=== PATIENT | female | born 1990 | race Caucasian/White ===

== ENCOUNTER 2017-05-03 23:37 | Inpatient (IN) | payer SELFPAY ==
[~2017-05-03] VITALS: Ht 172.7 cm; Wt 66.1 kg
[~2017-05-03 23:37] MED LIST: IBUPROFEN800 MG PO; NATALCARE RX1 TABLE1 PO; ~No Medications
[2017-05-04 00:04] LABS: HEMATOCRIT 36.8 % (36.0-46.0); MCH 31.2 PG (29.0-34.0); MCHC 35.1 G/DL (30.0-36.0); MCV 88.9 FL (83-99); MEAN PLAT.VOLUME 9.5 uM^3 (9.5-12.4); PLATELET COUNT 211 K/uL (156-360); RBC DIS.WIDTH-CV 12.4 % (11.8-14.6); RBC DIS.WIDTH-SD 40.5 % (39-53); RED BLOOD COUNT 4.14 M/uL (3.80-5.20); WHITE BLOOD COUNT 7.8 K/uL (4.1-10.2)
[2017-05-04 00:14] LABS: CHLORIDE 105 mEq/L (99-109); POTASSIUM 3.3 mEq/L (3.7-5.4); SODIUM 138 mEq/L (136-147)
[2017-05-04 00:15] LABS: GLUCOSE 102 mg/dL (70-99)
[2017-05-04 00:17] LABS: ANION GAP 9 MEQ/L (2-14)
[2017-05-04 00:19] LABS: GFR ESTIMATE (CALCULATED) > 59 mL/min/
[2017-05-04 00:20] LABS: UREA NITROGEN (BUN) 10 mg/dL (9-23)
[2017-05-04 00:43] LABS: QUANTITATIVE HCG 48123.9 MIU/ML
[2017-05-04 04:45] VITALS: BP 112/69
[2017-05-04 07:41] VITALS: BP 120/72
[2017-05-04] MEDS ORDERED: TYLENOL EXTRA500 MG PO (10:13)
[2017-05-04 11:20] VITALS: BP 122/72
[2017-05-04 16:14] VITALS: BP 118/76
== END 2017-05-04 18:38 | disposition home or self-care (01) | DRG 781 ==
LOC: EME 23:37 → EDOF 05-04 02:33 → ENRESERV 05-04 02:38 → 2EAST 05-04 04:32
PROVIDERS: Emergency Medicine
DX: O99.411 Diseases of the circulatory system complicating pregnancy, first trimester (principal); I26.09 Other pulmonary embolism with acute cor pulmonale; Z3A.01 Less than 8 weeks gestation of pregnancy; I83.92 Asymptomatic varicose veins of left lower extremity; O99.89 Other specified diseases and conditions complicating pregnancy, childbirth and the puerperium; J84.10 Pulmonary fibrosis, unspecified; I45.9 Conduction disorder, unspecified
CPT/HCPCS: 71275; 80048; 84702; 85027; 85379; 93005; 93971; 99281; 99285; J1650; J7030

== ENCOUNTER 2017-12-13 10:35 | Emergency (ER) | payer SELFPAY ==
[~2017-12-13] VITALS: Ht 167.6 cm; Wt 79.0 kg
[~2017-12-13 10:35] MED LIST changes: +TYLENOL EXTRA500 MG PO
[2017-12-13 11:11] LABS: BASOPHIL (%) 0.5 % (0-1); EOSINOPHIL (%) 1.2 % (0-5); EOSINOPHIL COUNT 0.1 K/uL (0-0.3); HEMATOCRIT 36.5 % (36.0-46.0); HEMOGLOBIN 13.2 G/DL (11.9-15.5); IMMATURE GRANULOCYTE (%) 0.9 % (0.0-0.7); LYMPHOCYTE (%) 22.4 % (15-42); LYMPHOCYTE COUNT 1.9 K/uL (1.0-2.8); MCH 33.8 PG (29.0-34.0); MCHC 36.2 G/DL (30.0-36.0); MCV 93.4 FL (83-99); MONOCYTE (%) 9.8 % (3-12); MONOCYTE COUNT 0.9 K/uL (0-0.8); NEUTROPHIL (%) 65.2 % (45-76); NEUTROPHIL COUNT 5.7 K/uL (1.8-6.4); PLATELET COUNT 187 K/uL (156-360); RBC DIS.WIDTH-CV 13.2 % (11.8-14.6); RBC DIS.WIDTH-SD 44.9 % (39-53); RED BLOOD COUNT 3.91 M/uL (3.80-5.20); WHITE BLOOD COUNT 8.7 K/uL (4.1-10.2)
[2017-12-13 11:20] LABS: PTT 40.1 SEC (25-37)
[2017-12-13 11:31] LABS: TROP-I INTERPRETATION NEGATIVE; TROPONIN-I < 0.01 ng/mL (0.0-0.30)
[2017-12-13 11:36] LABS: CHLORIDE 105 mEq/L (99-109); SODIUM 136 mEq/L (136-147)
[2017-12-13 11:38] LABS: GLUCOSE 110 mg/dL (70-99)
[2017-12-13 11:42] LABS: CREATININE 0.8 mg/dL (0.6-1.3); GFR ESTIMATE (CALCULATED) > 59 mL/min/
[2017-12-13 11:43] LABS: UREA NITROGEN (BUN) 9 mg/dL (9-23)
[2017-12-13 13:18] VITALS: BP 125/84
== END 2017-12-13 13:19 | disposition home or self-care (01) ==
LOC: EME 10:35
PROVIDERS: Emergency Medicine
DX: O99.89 Other specified diseases and conditions complicating pregnancy, childbirth and the puerperium (principal); R07.89 Other chest pain; Z3A.32 32 weeks gestation of pregnancy; Z86.711 Personal history of pulmonary embolism
CPT/HCPCS: 71275; 80048; 84484; 85025; 85610; 85730; 93005; 99281; 99283; J7030

== ENCOUNTER 2017-12-16 09:48 | Inpatient (IN) | payer SELFPAY ==
[~2017-12-16] VITALS: Ht 167.6 cm; Wt 80.0 kg
[2017-12-16] VITALS (14 sets, daily range): BP systolic 115–136; BP diastolic 64–87
[2017-12-16] MEDS ORDERED: HEPARIN SO5000 UNIT3 SC (10:28)
[2017-12-16] MEDS ORDERED: PRENATAL TABLE1 EAC3 PO (10:28)
[2017-12-16 10:39] LABS: BASOPHIL (%) 0.5 % (0-1); BASOPHIL COUNT 0.1 K/uL (0-0.1); EOSINOPHIL (%) 0.8 % (0-5); EOSINOPHIL COUNT 0.1 K/uL (0-0.3); HEMATOCRIT 34.9 % (36.0-46.0); HEMOGLOBIN 12.8 G/DL (11.9-15.5); IMMATURE GRANULOCYTE (%) 0.7 % (0.0-0.7); LYMPHOCYTE (%) 17.1 % (15-42); LYMPHOCYTE COUNT 1.8 K/uL (1.0-2.8); MCH 34.1 PG (29.0-34.0); MCHC 36.7 G/DL (30.0-36.0); MCV 93.1 FL (83-99); NEUTROPHIL (%) 71.9 % (45-76); NEUTROPHIL COUNT 7.7 K/uL (1.8-6.4); PLATELET COUNT 184 K/uL (156-360); RBC DIS.WIDTH-CV 13.2 % (11.8-14.6); RBC DIS.WIDTH-SD 44.7 % (39-53); RED BLOOD COUNT 3.75 M/uL (3.80-5.20); WHITE BLOOD COUNT 10.7 K/uL (4.1-10.2)
[2017-12-16 11:44] LABS: AMPHETAMINE NEGATIVE (500 ng/mL); BARBITURATES NEGATIVE (200 ng/mL); BENZODIAZEPINES NEGATIVE (150 ng/mL); BUPRENORPHINE NEGATIVE (10 ng/mL); COCAINE NEGATIVE (150 ng/mL); METHADONE NEGATIVE (200 ng/mL); METHAMPHETAMINE NEGATIVE (500 ng/mL); OPIATES (MORPHINE) NEGATIVE (100 ng/mL); OXYCODONE NEGATIVE (100 ng/mL); PHENCYCLIDINE NEGATIVE (25 ng/mL); PROPOXYPHENE NEGATIVE (300 ng/mL); THC CANNABINOIDS NEGATIVE (50 ng/mL); TRICYCLIC ANTIDEPRESSANTS NEGATIVE (300 ng/mL)
[2017-12-17 07:16] LABS: BASOPHIL (%) 0.4 % (0-1); BASOPHIL COUNT 0.1 K/uL (0-0.1); EOSINOPHIL (%) 0.6 % (0-5); EOSINOPHIL COUNT 0.1 K/uL (0-0.3); HEMATOCRIT 35.5 % (36.0-46.0); HEMOGLOBIN 12.4 G/DL (11.9-15.5); IMMATURE GRANULOCYTE (%) 0.6 % (0.0-0.7); LYMPHOCYTE (%) 16.5 % (15-42); LYMPHOCYTE COUNT 1.9 K/uL (1.0-2.8); MCH 33.4 PG (29.0-34.0); MCHC 34.9 G/DL (30.0-36.0); MCV 95.7 FL (83-99); MONOCYTE (%) 8.8 % (3-12); NEUTROPHIL (%) 73.1 % (45-76); NEUTROPHIL COUNT 8.5 K/uL (1.8-6.4); RBC DIS.WIDTH-CV 13.3 % (11.8-14.6); RBC DIS.WIDTH-SD 46.9 % (39-53); RED BLOOD COUNT 3.71 M/uL (3.80-5.20); WHITE BLOOD COUNT 11.7 K/uL (4.1-10.2)
[2017-12-17 07:20] VITALS: BP 113/70
[2017-12-17 07:27] LABS: PLAT.SUFFICIENCY VERY DECREASED
[2017-12-17 07:30] LABS: PLATELET COUNT 125 K/uL (156-360)
[2017-12-17] MEDS ORDERED: LOVENOX60 MG/0.6 SC (10:21)
[2017-12-17 15:51] VITALS: BP 117/80
== END 2017-12-17 18:27 | disposition home or self-care (01) | DRG 767 ==
LOC: LDRP-OP 09:48 → 2WEST 09:49
PROVIDERS: Advanced Practice Midwife
PROC: 10D17Z9 Manual Extraction of Products of Conception, Retained, Via Natural or Artificial Opening (ICD-10-PCS; principal; 2017-12-16)
PROC: 10E0XZZ Delivery of Products of Conception, External Approach (ICD-10-PCS; principal; 2017-12-16)
DX: O72.0 Third-stage hemorrhage (principal); Z3A.39 39 weeks gestation of pregnancy; Z37.0 Single live birth; O87.4 Varicose veins of lower extremity in the puerperium; Z86.718 Personal history of other venous thrombosis and embolism
CPT/HCPCS: 85025; 86850; 86900; 86901; J1644; J1650; J7120